=== PATIENT | female | born 1950 | race Hispanic/Latino ===

== ENCOUNTER 2017-08-23 12:58 | Inpatient (IN) | payer MEDICARE ==
--- NOTE | 2017-08-23 13:34 | ED PDOC ---
Arrival/HPI - General Chief Complaint: Shortness Of Breath Time Seen by Provider: 08/23/17 13:04 Historian: Patient - History of Present Illness Time/Duration: Other (several weeks) Symptom Onset: Gradual Symptom Course: Worsening Severity Level: Moderate Activities at Onset: Rest Associated Symptoms (Text): 08/23/17 13:31 Patient was seen in the office today by her PMD Dr. Maki and directed to the emergency department for a several week history of worsening shortness of breath. She also has urinary frequency and urgency for the last several weeks. She was treated with an unknown antibiotic and is no better. No chest pain. No cough congestion or URI. No abdominal pain nausea vomiting. Patient is currently living in a hotel. She is refusing a rectal temperature and a straight catheterization. She denies fever. Past Medical History - Cardiac Hx Cardiac Disorders: Yes Hx Congestive Heart Failure: Yes Hx Hypertension: Yes Hx Pacemaker: Yes - Pulmonary Hx Respiratory Disorders: Yes Hx Pulmonary Embolism: Yes Hx Sleep Apnea: Yes Other/Comment: IVC filter - Neurological Hx Neurological Disorder: No - HEENT Hx HEENT Disorder: No - Renal Hx Renal Disorder: No - Endocrine/Metabolic Hx Endocrine Disorders: Yes Hx Diabetes Mellitus Type 2: Yes Hx Hypothyroidism: Yes - Hematological/Oncological Hx Blood Disorders: No - Integumentary Hx Dermatological Disorder: No - Musculoskeletal/Rheumatological Hx Musculoskeletal Disorders: No Hx Arthritis: Yes - Gastrointestinal Hx Gastrointestinal Disorders: Yes Hx Constipation: Yes - Genitourinary/Gynecological Hx Genitourinary Disorders: Yes Hx Urinary Tract Infection: Yes - Psychiatric Hx Psychophysiologic Disorder: Yes Hx Panic Disorder: Yes Hx Substance Use: No - Surgical History Hx Tubal Ligation: Yes Other/Comment: IVC Filter - Anesthesia Hx Anesthesia: No Family/Social History - Physician Review Nursing Documentation Reviewed: Yes Family/Social History: Unknown Family HX Smoking Status: Former Smoker (quit smoking 37 years ago) Hx Alcohol Use: Yes Frequency of alcohol use: Socially Hx Substance Use: No Allergies/Home Meds Allergies/Adverse Reactions: Allergies melon Allergy (Verified 08/23/17 13:16) ANAPHYLAXIS Home Medications: Home Meds Medication Instructions Recorded Confirmed Ciprofloxacin [Cipro] 500 mg PO BID 08/23/17 08/23/17 Furosemide [Lasix] 40 mg PO DAILY 08/23/17 08/23/17 Levothyroxine Sodium [Synthroid] 0.3 mg PO DAILY 08/23/17 08/23/17 Nebivolol [Bystolic] 5 mg PO DAILY 08/23/17 08/23/17 Potassium Chloride [Klor-Con M10] 10 meq PO DAILY 08/23/17 08/23/17 SITagliptin [Januvia] 50 mg PO DAILY 08/23/17 08/23/17 Spironolactone [Aldactone] 25 mg PO MWF 08/23/17 08/23/17 Warfarin Sodium [Jantoven] 6 mg PO DAILY 08/23/17 08/23/17 hydrALAZINE [hydralazine 50 mg PO TID 08/23/17 08/23/17 Hydrochloride] Review of Systems - Physician Review All systems were reviewed & negative as marked: Yes - Review of Systems Constitutional: Fatigue. absent: Fevers Respiratory: SOB. absent: Cough, Sputum, Wheezing Cardiovascular: absent: Chest Pain, Palpitations, Syncope Gastrointestinal: absent: Abdominal Pain, Diarrhea, Nausea, Vomiting Genitourinary Female: Dysuria, Frequency. absent: Hematuria Neurological: absent: Headache, Dizziness Physical Exam Vital Signs Temp Pulse Resp BP Pulse Ox 08/23/17 14:46 97.8 F 63 18 131/84 100 08/23/17 13:50 16 100 08/23/17 13:06 97.8 F 71 24 129/74 100 Temperature: Afebrile Blood Pressure: Normal Pulse: Regular Respiratory Rate: Normal Appearance: Positive for: Well-Appearing, Non-Toxic, Uncomfortable, Other ( morbidly obese) Pain Distress: None Mental Status: Positive for: Alert and Oriented X 3 - Systems Exam Head: Present: Atraumatic, Normocephalic Pupils: Present: PERRL Extroacular Muscles: Present: EOMI Conjunctiva: Present: Normal Mouth: Present: Moist Mucous Membranes Pharnyx: No: ERYTHEMA, EXUDATE, TONSILS ENLARGED Neck: Present: Normal Range of Motion Respiratory/Chest: Present: Clear to Auscultation, Good Air Exchange, Decreased Breath Sounds, Tachypneic. No: Respiratory Distress, Accessory Muscle Use, Wheezes, Rales, Retracting, Rhonchi, Tender to Palpation Cardiovascular: Present: Regular Rate and Rhythm, Normal S1, S2. No: Murmurs Abdomen: Present: Tenderness (mild suprapubic), Normal Bowel Sounds. No: Distention, Peritoneal Signs, Rebound, Guarding Back: Present: Normal Inspection Upper Extremity: Present: Normal Inspection. No: Cyanosis, Edema Lower Extremity: Present: Edema, Other (severe bilateral lower extremity chronic venous stasis changes and edema) Neurological: Present: GCS=15, CN II-XII Intact, Speech Normal, Motor Func Grossly Intact Skin: Present: Warm, Dry, Normal Color. No: Rashes Psychiatric: Present: Alert, Oriented x 3, Normal Insight, Normal Concentration Medical Decision Making ED Course and Treatment: 08/23/17 14:16 EKG shows normal sinus rhythm rate approximately 63 with a primary AV block and inverted T waves laterally with LVH and nonspecific ST and T-wave changes with no old available for comparison 08/23/17 15:19 Markedly elevated d-dimer and the patient's BUN and creatinine are also elevated. VQ scan has been ordered. 08/23/17 17:19 Patient needed IV sedation with Ativan in order to tolerate the VQ scan. VQ scan as read by the radiologist as low probability for pulmonary embolus. 08/23/17 17:[address] Maki who requests consults with cardiology and nephrology - Lab Interpretations Lab Results: 08/23/17 13:39 08/23/17 13:39 Lab Results 08/23/17 14:03: pO2 35, VBG pH 7.46 H, VBG pCO2 33.0 L, VBG HCO3 23.5, VBG Total CO2 24.5, VBG O2 Sat (Calc) 76.2 H, VBG Base Excess 0.3, VBG Potassium 3.8 , Glucose 93, Lactate 1.6, FiO2 21.0, Sodium 139.0, Chloride 108.0 H, Venous Blood Potassium 3.8 08/23/17 13:47: POC Glucose (mg/dL) 106 08/23/17 13:39: Sodium 141, Potassium 4.3, Chloride 106, Carbon Dioxide 21, Anion Gap 19, BUN 67 H, Creatinine 2.6 H, Est GFR ( Amer) 22, Est GFR ( Non-Af Amer) 18, Random Glucose 107, Calcium 10.3, Total Bilirubin 0.8, AST 25, ALT 21, Alkaline Phosphatase 48, Lactate Dehydrogenase 526, Total Creatine Kinase 36, Troponin I 0.02, NT-Pro-B Natriuret Pep 1940 H, Total Protein 8.4 H, Albumin 4.3, Globulin 4.1, Albumin/Globulin Ratio 1.0 L 08/23/17 13:39: Urine Color Yellow, Urine Appearance Turbid, Urine pH 6.0, Ur Specific [place] 1.015, Urine Protein 30 H, Urine Glucose (UA) Negative, Urine Ketones Negative, Urine Blood Trace-intact H, Urine Nitrate Negative, Urine Bilirubin Negative, Urine Urobilinogen 0.2, Ur Leukocyte Esterase Large H, Urine RBC 0 - 2, Urine WBC Tntc, Urine Bacteria Trace 08/23/17 13:39: PT 14.9 H, INR 1.36 H, APTT 25.8, D-Dimer, Quantitative 2250 H 08/23/17 13:39: WBC 5.5, RBC 4.32, Hgb 12.9, Hct 37.8, MCV 87.5, MCH 29.9, MCHC 34.1, RDW 15.3 H, Plt Count 131, MPV 9.1, Gran % 66.2, Lymph % (Auto) 22.7, [place] % (Auto) 9.1 H, Eos % (Auto) 1.6, Baso % (Auto) 0.4, Gran # 3.65, Lymph # 1.3, [place] # 0.5, Eos # 0.1, Baso # 0.02 - RAD Interpretation Radiology Orders: 08/23/17 13:29 CHEST PORTABLE [RAD] Stat 08/23/17 15:17 LUNG PERF & VENT SCAN [NM] Stat X-ray chest 1 view as read by the radiologist shows mild cardiomegaly with no infiltrate and no effusion [employer] Gang Worker: Radiologist - Medication Orders Current Medication Orders: Discontinued Medications Ceftriaxone Sodium (Rocephin 1 Gram Ivpb (D5w)) 1 gm in 100 mls @ 200 mls/hr IVPB STAT STA PRN Reason: Protocol Stop: 08/23/17 14:45 Last Admin: 08/23/17 14:25 Dose: 200 mls/hr eMAR Start Stop Document 08/23/17 14:25 SE (Rec: 08/23/17 14:25 SE [id number]) Intravenous Solution Start Date 08/23/17 Start Time 14:25 Lorazepam (Ativan) 2 mg IVP ONCE ONE Stop: 08/23/17 15:30 Last Admin: 08/23/17 15:36 Dose: 2 mg IVP Administration Document 08/23/17 15:36 SE (Rec: 08/23/17 15:36 [facility] [id number] Charges for Administration # of IVP Administrations 1 Disposition/Present on Arrival - Present on Arrival Any Indicators Present on Arrival: No History of DVT/PE: Yes History of Uncontrolled Diabetes: No Urinary Catheter: No History of Decub. Ulcer: No History Surgical Site Infection Following: None - Disposition Have Diagnosis and Disposition been Completed?: Yes Diagnosis: Urinary tract infection, Renal failure, Dyspnea, Elevated brain natriuretic peptide (BNP) level Disposition: HOSPITALIZED Disposition Time: 17:27 Patient Plan: Admission Condition: FAIR Referrals: Matt Maki, [Primary Care Provider] - Follow up with primary Forms: [employer] (Micronesian)
[2017-08-23 13:59] LABS: BASO # 0.02 K/mm3 (0.0-2.0); BASO % 0.4 % (0.0-3.0); EOS # 0.1 (0.0-0.7); EOS % 1.6 % (1.5-5.0); GRAN # 3.65 (1.4-6.5); GRAN % 66.2 % (50.0-68.0); HEMATOCRIT 37.8 % (36.0-48.0); LYMPH # 1.3 (1.2-3.4); LYMPH % 22.7 % (22.0-35.0); MEAN CELL VOLUME 87.5 fl (80.0-105.0); MEAN CORPUSCULAR HEMOGLOBIN 29.9 pg (25.0-35.0); MEAN CORPUSCULAR HGB CONC 34.1 g/dl (31.0-37.0); MEAN PLATELET VOLUME 9.1 fl (7.0-11.0); MONO # 0.5 (0.1-0.6); MONO % 9.1 % (1.0-6.0); RED CELL DISTRIBUTION WIDTH 15.3 % (11.5-14.5); WHITE BLOOD COUNT 5.5 10^3/ul (4.5-11.0)
[2017-08-23 14:06] LABS: URINE BILIRUBIN NEGATIVE (NEGATIVE); URINE BLOOD TRACE-INTACT (NEGATIVE); URINE GLUCOSE (UA) NEGATIVE (NEGATIVE); URINE KETONE NEGATIVE (NEGATIVE); URINE LEUKOCYTE ESTERASE LARGE Leu/uL (NEGATIVE); URINE PROTEIN 30 mg/dL (<30 mg/dL); URINE UROBILINOGEN 0.2 E.U./dL (<1 E.U./dL)
[2017-08-23 14:07] LABS: URINE APPEARANCE TURBID (CLEAR); URINE COLOR YELLOW (YELLOW)
[2017-08-23 14:12] LABS: URINE BACTERIA TRACE (NEG); URINE RBC 0 - 2 /hpf (0-2); URINE WBC TNTC /hpf (0-6)
[2017-08-23] MEDS ORDERED: cefTRIAXone 1 gm 1 GM/100 ML BAG IVPB STA (14:16)
[2017-08-23 14:17] LABS: VENOUS BLOOD GAS BASE EXCESS 0.3 mmol/L (0.0-2.0); VENOUS BLOOD PH 7.46 (7.32-7.43)
[2017-08-23 14:20] LABS: INR 1.36 (0.93-1.08); PARTIAL THROMBOPLASTIN TIME 25.8 Seconds (25.1-36.5)
--- NOTE | 2017-08-23 14:21 | RAD ---
HISTORY: sob COMPARISON: No prior. FINDINGS: LUNGS: No active pulmonary disease. PLEURA: No significant pleural effusion identified, no pneumothorax apparent. CARDIOVASCULAR: Mild cardiomegaly OSSEOUS STRUCTURES: No significant abnormalities. VISUALIZED UPPER ABDOMEN: Normal. OTHER FINDINGS: Dual lead pacemaker IMPRESSION: No active disease.
[2017-08-23 14:24] LABS: TROPONIN I 0.02 ng/mL
[2017-08-23 15:16] LABS: BILIRUBIN,TOTAL 0.8 mg/dL (0.2-1.3); CALCIUM 10.3 mg/dL (8.4-10.5); POTASSIUM 4.3 mmol/L (3.6-5.0); TOTAL PROTEIN 8.4 g/dL (5.8-8.3)
--- NOTE | 2017-08-23 17:05 | NM ---
COMPARISON: Portable chest same day TECHNIQUE: 33.0 mCi technetium 99-m DTPA aerosol. 3.2 mCI technetium 99-m MAA administered intravenously. FINDINGS: VENTILATION COMPONENT: Normal. PERFUSION COMPONENT: Normal. IMPRESSION: Lowprobability ventilation perfusion scan for pulmonary embolism.
[2017-08-23] MEDS ORDERED: Sodium Chloride 0.45% 1,000 ML IV SCH (19:15)
--- NOTE | 2017-08-24 00:12 | HP ---
HISTORY OF PRESENT ILLNESS: I saw Alea today earlier in the afternoon with her son, she came to my office and she was very short of breath, was not feeling well even in a wheelchair, not doing anything. I sent to the emergency room and I found that she was having increasing urinary frequency and pus coming from the urine. She was on Cipro for UTI and apparently it did not work. She is very uncomfortable and she also has some edema of the lower extremities. PAST MEDICAL HISTORY: History of CHF, pacemaker, hypertension, pulmonary embolism in the past, sleep apnea. She has an IVC filter. She has diabetes, hypothyroidism, arthritis, constipation, history of urinary tract infections, panic disorder, tubal ligation, IVC filter. FAMILY HISTORY: There is hypertension in her family. SOCIAL HISTORY: She is a former smoker, quit 37 years ago. Social alcohol. No substance abuse. ALLERGIES: SHE HAS ALLERGIES TO MELON. MEDICATIONS: She takes Cipro, Lasix, Synthroid, Bystolic, potassium, Januvia, Aldactone, Jantoven, and hydralazine. REVIEW OF SYSTEMS: No acute vision or hearing changes. No sore throat. She is short of breath. No coughing. No wheezing. No chest pain or palpitation. No abdominal pain, nausea, vomiting, constipation, or diarrhea. She has increase in urination and problems with urination, little bit of burning. No headache, dizziness, or sweating. No apparent skin issues. PHYSICAL EXAMINATION: GENERAL: She is toxic looking to me, lethargic in breathing at a very fast rate. Alert and oriented x3. VITAL SIGNS: She has a 97.8 temperature, 63 pulse, 18 respiratory rate, 131/84 blood pressure, 100% O2 saturation on room air. HEENT: Head is normocephalic and atraumatic. Extraocular muscles are intact. Throat is dry. NECK: Supple. HEART: Regular rate. Normal S1 and S2. LUNGS: Decreased breath sounds bilaterally. She is breathing at a 24 breaths per minute. ABDOMEN: Soft, morbidly obese, nontender. There is mild suprapubic tenderness. No guarding. No rebound. No CVA tenderness. EXTREMITIES: +4 pitting edema bilaterally. NEUROLOGIC: GCS is 15. Cranial nerves II through XII grossly intact. Speech is normal. She is alert and oriented x3, very weak, lethargic, breathing too fast. LABORATORY DATA: She had multiple tests done. The lung scan with low probability. The chest x-ray with no acute disease. She has a 5.5 white count, 12.9 hemoglobin, 37.8 hematocrit with 131 platelets. 1.36 INR. 2250 D-dimer. She has a 7.46 pH and pO2 is 76. Lactate was 1.6. 141 sodium, potassium 4.3, BUN 67, creatinine 2.6 elevated, GFR is 18, sugar is 107, calcium is 10.3. Total bilirubin is 0.8, AST is 25, ALT is 21, alk phos is 48. Troponin I is 0.02. BNP is high at 1140. Total protein is 8.4. Urine, large leukocytes too numerous count white cells, and trace bacteria. ASSESSMENT AND PLAN: She is having pyuria, she is having renal failure. She is having congestive heart failure. She is having shortness of breath. She is morbidly obese with venous stasis and edema. She has got IV Rocephin and consults with Pulmonary and Renal. We will check her labs tomorrow. Physical therapy. She might need subacute rehab. Continue aggressive treatment and care. Matt Maki DO
--- NOTE | 2017-08-24 00:52 | CARD ---
APPROVED REPORT EKG Measurement Heart [id number] <Conclusion> Sinus rhythm with 1st degree AV block Minimal voltage criteria for LVH, may be normal variant ST & T wave abnormality, consider anterolateral ischemia Abnormal ECG
[2017-08-24 06:28] LABS: INR 1.46 (0.93-1.08)
[2017-08-24 06:55] LABS: ALB/GLOB RATIO 0.9 (1.1-1.8); BILIRUBIN,TOTAL 0.7 mg/dL (0.2-1.3); CALCIUM 9.2 mg/dL (8.4-10.5); POTASSIUM 3.9 mmol/L (3.6-5.0); TOTAL PROTEIN 6.9 g/dL (5.8-8.3)
[2017-08-24 06:57] LABS: HEMATOCRIT 33.3 % (36.0-48.0); MEAN CELL VOLUME 88.8 fl (80.0-105.0); MEAN CORPUSCULAR HEMOGLOBIN 28.8 pg (25.0-35.0); MEAN CORPUSCULAR HGB CONC 32.4 g/dl (31.0-37.0); RED CELL DISTRIBUTION WIDTH 15.6 % (11.5-14.5); WHITE BLOOD COUNT 4.2 10^3/ul (4.5-11.0)
[2017-08-24] MEDS: Insulin Reg-MEDIUM-Coverage SC SCH ×4 (08:36→21:44)
[2017-08-24] MEDS: Levothyroxine 150 MCG TAB PO SCH (09:59)
[2017-08-24] MEDS: Potassium Chloride 10 mEq ER Tab PO SCH (09:59)
[2017-08-24] MEDS: cefTRIAXone 1 gm 1 GM/100 ML BAG IVPB SCH (10:00)
[2017-08-24] MEDS ORDERED: LEVOTHYROXINE SODIUM 0.3 MG PO SCH (10:00)
[2017-08-24] MEDS: Non Formulary Medication (Nebivolol [Bystolic] 5 MG) PO SCH (10:45)
--- NOTE | 2017-08-24 12:23 | PN ---
DATE: SUBJECTIVE: I saw Alea this morning. She is doing so much better than yesterday. She is not short of breath. She is talking much better. She is breathing much better. Looks like she diuresed very well as she is thinner overall. She is in no pain, no chest pain, no shortness of breath, so I am hoping if we continue this by tomorrow, I might be able to get her up as she needs physical therapy. PHYSICAL EXAMINATION: GENERAL: She is very alert, not lethargic. She is talking. VITAL SIGNS: 97.8 temp, 72 pulse, 134/66 blood pressure, 17 respiratory rate and 99% O2 saturation on room air. HEENT: Head is atraumatic and normocephalic. Throat is moist. NECK: Supple. HEART: Regular rate. LUNGS: Decreased breath sounds, but clear, no wheeze, no rhonchi and no rales this morning. ABDOMEN: Soft, obese, and nontender. EXTREMITIES: Much less edema, it is +2 to +3/4 bilaterally, yesterday it was +4, so she is definitely diuresed well. LABORATORY DATA: She has a 4.2 white count, 10.8 hemoglobin, 32.3 hematocrit with a 116 platelets. Her INR is up to 1.46. She has a 139 sodium, potassium 3.9, BUN 62 better, creatinine 2.6 the same, GFR is 18 the same, sugar is 97, calcium 9.2, total bilirubin 0.7, AST is 20, ALT is 21, alkaline phosphatase 42, and total protein 6.9. Her urine was bad, large leukocytes, too numerous to count white count. ASSESSMENT AND PLAN: I am waiting for Renal and Cardio to look at her. I think she is doing much better than when she came in. We will continue with the antibiotics. Continue with Lasix, diurese 40 daily and a little bit of fluid at 30 mL an hour. Checking her INR level. I want her out of bed to chair, I want physical therapy. I do not know if she is going to need to have subacute rehab or Transitional Care Unit before she goes home. We will see what they recommend, and she is here for congestive heart failure, pyuria, obesity, venous stasis, and she was short of breath. Matt Maki DO [place]
--- NOTE | 2017-08-24 14:45 | US ---
PROCEDURE: Ultrasound of the Kidneys HISTORY: MAE COMPARISON: None available. TECHNIQUE: Sonogram of the kidneys. FINDINGS: RIGHT KIDNEY: Measures: 10.1 x 3.9 x 3.9 cm. Normal in size, contour and echogenicity. No, solid mass lesion or hydronephrosis visualized. Multiple shadowing renal calculi. Mid to lower pole right renal cortical cyst 6 x 5 x 6 mm LEFT KIDNEY: Measures: 10.0 x 4.5 x 4.7 cm. Normal in size, contour and echogenicity. No solid mass lesion or hydronephrosis visualized. Multiple shadowing renal calculi OTHER FINDINGS: None. IMPRESSION: Bilateral renal calculi some appear greater than 5 mm in size in each kidney. No hydronephrosis. Right renal cortical cyst mid to lower pole - measuring up to 6 mm
--- NOTE | 2017-08-24 16:02 | CP.PCM.CON ---
History of Present Illness - History of Present Illness History of Present Illness: Initial Nephrology Consultation: Assessment: Stable UTI Acute Kidney Injury (N17.9) versus progression of underlying CKD Diabetic chronic Kidney Disease (E11.22) Hypertensive Chronic Kidney Disease (I12.9) Chronic Kidney Disease (N18.4) Stage 4 with ?mg proteinuria (R80.9) likely due to Dm/HTN Anemia (D64.9), HTN (I12.9) CHF, hx of PPM, DVT and PE s/p IVC Filter, GAIL, Morbid obesity, chronic lymphedema Plan No acute need for renal replacement therapy at this time. Hypertension control with meds as ordered. Patient not on ACEI/ARB, will defer due to advanced renal insuff at this time Monitor Input/Output, daily weights and renal function with basic metabolic panel d/c IVF can continue with lasix. Check urine analysis, spot protein/creatinine and albumin/creatinine ratio, renal sonogram. . Check for 25-OH vitamin D, iPTH, phosphorus level, TSAT/Ferritin Check serum protein electrophoresis with immunofixation, free light chain assay Dose meds/antibiotics for reduced GFR. Avoid fleets enema/magnesium based laxatives. Avoid nephrotoxins/NSAIDs/ iodinated contrast (unless needed emergently) Glycemic control Further work up/management as per primary team Thanks for allowing me to participate in care of your patient. Will follow patient with you. Please call if any Qs Dr Antonio Singh Office: [phone] Chief Complaint; UTI reason for consult: renal insuff HPI: Pt is a 67 F with hx of diabetes Mellitus (35 years) without known retinopathy, hypertension (30 years), CHF, hx of PPM, DVT and PE s/p IVC Filter , GAIL, Morbid obesity, chronic lymphedema presented with complaints of UTI symptoms and SOB and being managed for it also noticed elevated creatinine hence renal consulted. pt says she is aware of kidney problem for few years was told its around 50%. used to be in [facility] , now moved here [place] [facility] Denies chest pain, palpitation, improved shortness of breath, reports chronic leg swelling Denies blood or bubbles in urine but c/o UTI symptoms Denies OTC/herbal meds or NSAIDs No recent iodinated contrast exposure. No obvious episodes of low BP. ROS: Constitutional Symptoms: Denies fever. No chills. No Recent Weight Changes Eyes: denies change in vision, denies watery eyes, denies double vision Ears/Nose/Mouth/Throat: Denies Abnormal Taste. No Bad breath no Bad Taste. Cardiovascular: No chest pain. No palpitations. Pulmonary: c/o shortness of breath no cough. Gastrointestinal: denies abdominal pain No nausea. No vomiting. Denies change in bowel habits. Denies Bleeding Genitourinary: No Change in force of strain when urinating. c/o increase in urinary frequency. No pain while urinating. Denies blood in urine. c/o painful urination Neurological: Denies headaches. No dizziness. Denies loss of balance. Denies weakness, denies tingling/numbness Dermatological: No Rash or Bruising or ulcers. Psychiatric: c/o Anxiety. No depression. Denies hallucinations. Rheumatological: No joint pain. Denies Joint swelling Endocrine: Denies tiredness/Fatigue denies Heat/Cold Intolerance. All other negative Physical Examination: General Appearance: Comfortable, in no acute respiratory distress, co-operative . obese Vitals reviewed and noted as below Head; Atraumatic, normocephalic ENT: no ulcers no thrush. Tongue is midline. Oropharynx: no rash or ulcers. EYES: Pupils are equal, round and reactive to light accommodation. Eye muscles and extraocular movement intact. Sclera is anicteric. Neck; supple no lymphadenopathy, no thyromegaly or bruit Lungs: Normal respiratory rate/effort. Breath sounds bilateral equal and clear Heart: Normal rate. s1s2 normal. No rub or gallop. has PPM Extremities: chronic appearing leg edema. has chronic venous stasis changes in legs Neurological: Patient is alert, awake and oriented to person, place and time. No focal deficit. Strength bilateral appropriate and equal Skin: Warm and dry. Normal turgor. No rash. Palpitation: Normal elasticity for age Abdomen: Abdomen is soft. Bowel sounds +. There is no abdominal tenderness, no guarding/rigidity no organomegaly Psych: normal insight and normal affect/mood MSK: no joint tenderness or swelling. Digits and nails normal, no deformity : kidney or bladder not palpable Labs/imaging reviewed. Past medical history, past surgical history, family history, social history, allergy reviewed and noted as below Family hx: no hx of CKD. Rest non-contributory renal sono: b/l calculi and rt renal cyst Past Patient History - Past Social History Smoking Status: Former Smoker - CARDIAC Hx Cardiac Disorders: Yes Hx Congestive Heart Failure: Yes Hx Hypercholesterolemia: Yes Hx Hypertension: Yes - PULMONARY Hx Respiratory Disorders: Yes Hx Sleep Apnea: Yes Other/Comment: IVC filter - NEUROLOGICAL Hx Neurological Disorder: No - HEENT Hx HEENT Problems: No - RENAL Hx Chronic Kidney Disease: No - ENDOCRINE/METABOLIC Hx Diabetes Mellitus Type 2: Yes Hx Hypothyroidism: Yes - HEMATOLOGICAL/ONCOLOGICAL Hx Blood Disorders: No - INTEGUMENTARY Hx Dermatological Problems: No - MUSCULOSKELETAL/RHEUMATOLOGICAL Hx Falls: No - GASTROINTESTINAL Hx Gastrointestinal Disorders: Yes - GENITOURINARY/GYNECOLOGICAL Hx Genitourinary Disorders: Yes Hx Urinary Tract Infection: Yes - PSYCHIATRIC Hx Psychophysiologic Disorder: Yes Hx Panic Symptoms: Yes - SURGICAL HISTORY Other/Comment: IVC Filter - ANESTHESIA Hx Anesthesia: No Meds Allergies/Adverse Reactions: Allergies Allergy/AdvReac Type Severity Reaction Status Date / Time melon Allergy ANAPHYLAXIS Verified 08/23/17 13:16 - Medications Medications: Current Medications Acetaminophen (Tylenol 325mg Tab) 650 mg PO Q4H PRN PRN Reason: Pain, Mild (1-3) Last Admin: 08/24/17 14:15 Dose: 650 mg Furosemide (Lasix) 40 mg IVP DAILY [facility] Last Admin: 08/24/17 10:00 Dose: 40 mg Ceftriaxone Sodium (Rocephin 1 Gram Ivpb (D5w)) 1 gm in 100 mls @ 100 mls/hr IVPB DAILY [facility]KO PRN Reason: Protocol Last Admin: 08/24/17 10:00 Dose: 100 mls/hr Insulin Human Regular (Humulin R Med) 0 units SC ACHS FRANKO PRN Reason: Protocol Last Admin: 08/24/17 12:11 Dose: Not Given Levothyroxine Sodium (Synthroid) 300 mcg PO ACB [facility] Last Admin: 08/24/17 09:59 Dose: 300 mcg Non-Formulary Medication (Nebivolol [Bystolic]) 5 mg PO DAILY [facility] Last Admin: 08/24/17 10:45 Dose: Not Given Potassium Chloride (Klor-Con 10) 10 meq PO BRK [facility] Last Admin: 08/24/17 09:59 Dose: 10 meq Sitagliptin Phosphate (Januvia) 25 mg PO DAILY [facility] Last Admin: 08/24/17 09:59 Dose: 25 mg Warfarin Sodium (Coumadin) 6 mg PO 1800 [facility]KO Results - Vital Signs Recent Vital Signs: Last Vital Signs Temp 98.0 F 08/24/17 06:00 Pulse 76 08/24/17 06:00 Resp 18 08/24/17 06:00 BP 132/69 08/24/17 10:00 Pulse Ox 93 L 08/24/17 06:00 - Labs Result Diagrams: 08/24/17 05:40 08/24/17 05:40 Labs: Laboratory Results - last 24 hr 08/23/17 08/24/17 08/24/17 21:08 05:40 05:40 WBC 4.2 L D RBC 3.75 Hgb 10.8 L D Hct 33.3 L MCV 88.8 MCH 28.8 MCHC 32.4 RDW 15.6 H Plt Count 116 L MPV 9.0 PT INR Sodium 139 Potassium 3.9 Chloride 108 H Carbon Dioxide 24 Anion Gap 12 BUN 62 H Creatinine 2.6 H Est GFR ( Amer) 22 Est GFR (Non-Af Amer) 18 POC Glucose (mg/dL) 106 Random Glucose 97 Calcium 9.2 Iron TIBC % Saturation Total Bilirubin 0.7 AST 20 ALT 21 Alkaline Phosphatase 42 Total Protein 6.9 Albumin 3.3 Globulin 3.6 Albumin/Globulin Ratio 0.9 L Ur Random Creatinine Ur Random Sodium 08/24/17 08/24/17 08/24/17 05:40 05:40 07:30 WBC RBC Hgb Hct MCV MCH MCHC RDW Plt Count MPV PT 16.2 H INR 1.46 H Sodium Potassium Chloride Carbon Dioxide Anion Gap BUN Creatinine Est GFR ( Amer) Est GFR (Non-Af Amer) POC Glucose (mg/dL) 85 Random Glucose Calcium Iron 58 TIBC 210 L % Saturation 28 Total Bilirubin AST ALT Alkaline Phosphatase Total Protein Albumin Globulin Albumin/Globulin Ratio Ur Random Creatinine Ur Random Sodium 08/24/17 08/24/17 08/24/17 11:23 14:20 14:20 WBC RBC Hgb Hct MCV MCH MCHC RDW Plt Count MPV PT INR Sodium Potassium Chloride Carbon Dioxide Anion Gap BUN Creatinine Est GFR ( Amer) Est GFR (Non-Af Amer) POC Glucose (mg/dL) 122 H Random Glucose Calcium Iron TIBC % Saturation Total Bilirubin AST ALT Alkaline Phosphatase Total Protein Albumin Globulin Albumin/Globulin Ratio Ur Random Creatinine 18 Ur Random Sodium 117
[2017-08-24 17:58] LABS: VITAMIN D 25 OH TOTAL 53.3 NG/ML (30.0-100.0)
[2017-08-25 06:18] LABS: CREATININE, RANDOM URINE 21 mg/dL (20-320)
[2017-08-25 06:42] LABS: HEMATOCRIT 33.1 % (36.0-48.0); MEAN CELL VOLUME 87.6 fl (80.0-105.0); MEAN CORPUSCULAR HEMOGLOBIN 28.8 pg (25.0-35.0); MEAN CORPUSCULAR HGB CONC 32.9 g/dl (31.0-37.0); MEAN PLATELET VOLUME 9.1 fl (7.0-11.0); RED CELL DISTRIBUTION WIDTH 15.4 % (11.5-14.5); WHITE BLOOD COUNT 4.1 10^3/ul (4.5-11.0)
[2017-08-25 06:48] LABS: INR 1.28 (0.93-1.08)
[2017-08-25 07:17] LABS: BILIRUBIN,TOTAL 0.5 mg/dL (0.2-1.3); TOTAL PROTEIN 6.9 g/dL (5.8-8.3)
[2017-08-25 08:16] LABS: POTASSIUM 4.1 mmol/L (3.6-5.0)
--- NOTE | 2017-08-25 08:24 | CON ---
CARDIOLOGY CONSULTATION DATE: 08/24/2017 HISTORY OF PRESENT ILLNESS: The patient is a 67-year-old woman who presents with dyspnea and marked dysuria. PAST MEDICAL HISTORY: Includes a history of pulmonary embolism, treated with warfarin years ago. She has also had a pacemaker placed several years ago, what she told was for bradycardia. No other details are available. The patient has no previous cardiac history. No previous history of myocardial infarction. Her cardiac risk factors includes hypertension and diabetes mellitus. SOCIAL HISTORY: She denies smoking. REVIEW OF SYSTEMS: No chest pain or shortness of breath at this time. Plus/minus edema. She is complaining of marked dysuria. PHYSICAL EXAMINATION VITAL SIGNS: Blood pressure is 132/69, heart rate in the 70s. NECK: Negative JVD. LUNGS: Without rales. HEART: Reveal S1, S2. EXTREMITIES: Without edema. LABORATORY DATA: Reveals normal sinus rhythm with diffuse ST-T changes. Troponin is negative x1. INR is 1.46. Chemistries; BUN and creatinine 62/2.6 with a glucose of 122. The hemoglobin is 10.8. IMPRESSION: 1. Dyspnea, which is now resolved. 2. No evidence for pulmonary embolism, although there is a history of it. 3. History of pacemaker for questionable reasons. 4. Anemia. 5. Hypertension. 6. Diabetes mellitus. Given these findings, since the pulmonary embolism is ruled out for her dyspnea, we will obtain an echocardiogram to evaluate her LV function. Tylenol been ordered for her dysuria.. Pyridium cannot be used because of her renal insufficiency. Mane Key MD
[2017-08-25] MEDS: Insulin Reg-MEDIUM-Coverage SC SCH ×4 (08:25→21:50)
[2017-08-25] MEDS: Levothyroxine 150 MCG TAB PO SCH (08:55)
[2017-08-25] MEDS: Potassium Chloride 10 mEq ER Tab PO SCH (08:55)
[2017-08-25] MEDS: Non Formulary Medication (Nebivolol [Bystolic] 5 MG) PO SCH (10:36)
[2017-08-25] MEDS: cefTRIAXone 1 gm 1 GM/100 ML BAG IVPB SCH (10:39)
[2017-08-25] MEDS: Psyllium Packet PO SCH ×2 (10:39→17:26)
--- NOTE | 2017-08-25 11:51 | PN ---
SUBJECTIVE: I saw Alea resting comfortably in bed. She is breathing better. Legs are less swollen. She is doing better overall. She needs to go to subacute rehab. I am going to try and get her to [facility] or [facility]. She is on Coumadin, insulin coverage,, Januvia, potassium replacement, Lasix 40 IV, Bystolic, Rocephin, Synthroid, Tylenol, and Xanax. PHYSICAL EXAMINATION: VITAL SIGNS: 97.8 temp, 70 pulse, 136/67 blood pressure, 20 respiratory rate, 96% O2 sat on room air. HEENT: Head is atraumatic and normocephalic. HEART: Regular rate. LUNGS: Decreased breath sounds. Clear to auscultation. ABDOMEN: Soft, nontender. Positive bowel sounds. EXTREMITIES: +1 to 2 pitting edema. LABORATORY DATA: She has a white count that is 4.1, hemoglobin 10.9, hematocrit 33.1, platelets of 114. INR is down to 1.28, increased the Coumadin from 6 mg to 7. She has 139 sodium, potassium 4.1, BUN 62, creatinine 2.5, this this is got to be her baseline, GFR is 19, sugar is 92, calcium is 9, total bilirubin is 0.5, AST is 24, ALT is 21, alk phos is 41, total protein 6.9. She is being seen by Renal and Cardio. My plan is to go to subacute rehab tomorrow that will be her third overnight. ASSESSMENT: She is here for congestive heart failure, pyuria, renal failure, obesity, and venous stasis. She needs physical therapy before she goes home. Matt Maki DO MTDD
--- NOTE | 2017-08-25 12:15 | CP.PCM.PN ---
Subjective - Date & Time of Evaluation Date of Evaluation: 08/25/17 Time of Evaluation: 12:13 - Subjective Subjective: Follow up Nephrology Consultation: Assessment: Stable UTI Acute Kidney Injury (N17.9) versus progression of underlying CKD Diabetic chronic Kidney Disease (E11.22) Hypertensive Chronic Kidney Disease (I12.9) Chronic Kidney Disease (N18.4) Stage 4 with 1.1 gm proteinuria (R80.9) likely due to Dm/HTN Anemia (D64.9), HTN (I12.9) CHF, hx of PPM, DVT and PE s/p IVC Filter, GAIL, Morbid obesity, chronic lymphedema b/l non-obst calculi Plan No acute need for renal replacement therapy at this time. Hypertension control with meds as ordered. Patient not on ACEI/ARB, will defer due to advanced renal insuff at this time Monitor Input/Output, daily weights and renal function with basic metabolic panel continue with lasix. started Fe supplements and MVI Checking serum protein electrophoresis with immunofixation, free light chain assay, iPTH Dose meds/antibiotics for reduced GFR. Avoid fleets enema/magnesium based laxatives. Avoid nephrotoxins/NSAIDs/ iodinated contrast (unless needed emergently) Glycemic control Further work up/management as per primary team Thanks for allowing me to participate in care of your patient. Will follow patient with you. Please call if any Qs Dr Antonio Singh Office: [phone] Chief Complaint; UTI reason for consult: renal insuff HPI: Pt is a 67 F with hx of diabetes Mellitus (35 years) without known retinopathy, hypertension (30 years), CHF, hx of PPM, DVT and PE s/p IVC Filter , GAIL, Morbid obesity, chronic lymphedema presented with complaints of UTI symptoms and SOB and being managed for it also noticed elevated creatinine hence renal consulted. pt says she is aware of kidney problem for few years was told its around 50%. used to be in [facility] , now moved here [place] [facility] Denies chest pain, palpitation, improved shortness of breath, reports chronic leg swelling Physical Examination: General Appearance: Comfortable, in no acute respiratory distress, co-operative . obese Vitals reviewed and noted as below Head; Atraumatic, normocephalic ENT: no ulcers no thrush. Tongue is midline. Oropharynx: no rash or ulcers. EYES: Pupils are equal, round and reactive to light accommodation. Eye muscles and extraocular movement intact. Sclera is anicteric. Neck; supple no lymphadenopathy, no thyromegaly or bruit Lungs: Normal respiratory rate/effort. Breath sounds bilateral equal and clear Heart: Normal rate. s1s2 normal. No rub or gallop. has PPM Extremities: chronic appearing leg edema. has chronic venous stasis changes in legs Neurological: Patient is alert, awake and oriented to person, place and time. No focal deficit. Strength bilateral appropriate and equal Skin: Warm and dry. Normal turgor. No rash. Palpitation: Normal elasticity for age Abdomen: Abdomen is soft. Bowel sounds +. There is no abdominal tenderness, no guarding/rigidity no organomegaly Psych: normal insight and normal affect/mood MSK: no joint tenderness or swelling. Digits and nails normal, no deformity : kidney or bladder not palpable Labs/imaging reviewed. Past medical history, past surgical history, family history, social history, allergy reviewed and noted as below Family hx: no hx of CKD. Rest non-contributory renal sono: b/l calculi and rt renal cyst Objective - Vital Signs/Intake and Output Vital Signs (last 24 hours): Temp Pulse Resp BP Pulse Ox 97.8 F 70 20 136/67 96 08/25/17 06:00 08/25/17 06:00 08/25/17 06:00 08/25/17 10:38 08/25/17 06:00 Intake and Output: 08/25/17 08/25/17 06:59 18:59 Intake Total 1020 Balance 1020 - Medications Medications: Current Medications Acetaminophen (Tylenol 325mg Tab) 650 mg PO Q4H PRN PRN Reason: Pain, Mild (1-3) Last Admin: 08/25/17 02:28 Dose: 650 mg Alprazolam (Xanax) 0.25 mg PO BID PRN; Protocol PRN Reason: Anxiety Stop: 09/01/17 10:01 Last Admin: 08/25/17 08:55 Dose: 0.25 mg Ferrous Gluconate (Fergon) 324 mg PO TID [facility] Furosemide (Lasix) 40 mg IVP DAILY [facility] Last Admin: 08/25/17 10:38 Dose: 40 mg Ceftriaxone Sodium (Rocephin 1 Gram Ivpb (D5w)) 1 gm in 100 mls @ 100 mls/hr IVPB DAILY [facility] PRN Reason: Protocol Last Admin: 08/25/17 10:39 Dose: 100 mls/hr Insulin Human Regular (Humulin R Med) 0 units SC ACHS [facility] PRN Reason: Protocol Last Admin: 08/25/17 08:25 Dose: Not Given Levothyroxine Sodium (Synthroid) 300 mcg PO ACB [facility] Last Admin: 08/25/17 08:55 Dose: 300 mcg Multivitamins (Thera Tab) 1 tab PO 0800 [facility] Non-Formulary Medication (Nebivolol [Bystolic]) 5 mg PO DAILY [facility] Last Admin: 08/25/17 10:36 Dose: Not Given Potassium Chloride (Klor-Con 10) 10 meq PO BRK [facility] Last Admin: 08/25/17 08:55 Dose: 10 meq Psyllium Hydrophilic Mucilloid (Hydrocil Instant) 1 pkt PO BID [facility] Last Admin: 08/25/17 10:39 Dose: 1 pkt Sitagliptin Phosphate (Januvia) 25 mg PO DAILY [facility] Last Admin: 08/25/17 10:38 Dose: 25 mg Warfarin Sodium (Coumadin) 3 mg PO 1800 [facility] Warfarin Sodium (Coumadin) 4 mg PO 1800 [facility] - Labs Labs: 08/25/17 05:30 08/25/17 06:30 PT 14.2 SECONDS (9.4-12.5) H 08/25/17 05:30 INR 1.28 (0.93-1.08) H 08/25/17 05:30 APTT 25.8 Seconds (25.1-36.5) 08/23/17 13:39
--- NOTE | 2017-08-25 12:33 | PN ---
DATE: 08/25/2017 CARDIOLOGY FOLLOWUP SUBJECTIVE: The patient's dysuria is much improved. PHYSICAL EXAMINATION: VITAL SIGNS: Blood pressure 136/67, heart rate in the 70s. NECK: Negative JVD. LUNGS: Without rales. HEART: S1, S2. EXTREMITIES: Without edema. LABORATORY DATA: Hemoglobin is 10.9. Chemistries, BUN and creatinine 62 and 2.5. IMPRESSION: 1. Improvement of her dysuria. 2. Renal insufficiency. 3. No evidence for pulmonary embolism. 4. History of pacemaker placement. 5. Hypertension. 6. Diabetes mellitus. PLAN: Given these findings, the patient's echocardiogram is pending. From a cardiac perspective, the patient is doing well so far. Mane Key MD
--- NOTE | 2017-08-25 18:11 | CARD ---
APPROVED REPORT EXAM: Two-dimensional and M-mode echocardiogram with Doppler and color Doppler. INDICATION Dyspnea 2D DIMENSIONS Left Atrium (2D)4.0 (1.6-4.0cm)IVSd1.4 (0.7-1.1cm) Aortic Root (2D)3.0 (2.0-3.7cm)LVDd4.4 (3.9-5.9cm) PWd1.3 (0.7-1.1cm)LVDs2.7 (2.5-4.0cm) FS (%) 38.6 %LVEF (%)69.2 (>50%) M-Mode DIMENSIONS Aortic Cusp Exc.1.60 (1.5-2.0cm) Aortic Valve AoV Peak Dirgzpkl504.0cm/Thad Peak GR.9mmHg Mitral Valve MV E Ywxxiacf84.1cm/sMV A Gguazrby86.9cm/sE/A ratio0.8 TDI Lateral E' Peak V7.02cm/sMedial E' Peak V3.12cm/sE/Lateral E'9.6 E/Medial E'21.5 Pulmonary Valve PV Peak Canyapjo68.6cm/sPV Peak Grad.3mmHg Tricuspid Valve TR Peak Ieygdwwu409tg/sRAP [id number] Peak Gr.27mmHg [id number] LEFT VENTRICLE The left ventricle is normal size. There is mild concentric left ventricular hypertrophy. The left ventricular function is normal. The left ventricular ejection fraction is within the normal range. There is normal LV segmental wall motion. Transmitral Doppler flow pattern is Grade I-abnormal relaxation pattern. RIGHT VENTRICLE The right ventricle is mildly dilated, RV Systolic function is mildly reduced. Systolic function is mildly reduced. There is a pacemaker lead in the right ventricle. ATRIA The left atrium is mildly dilated. The right atrium size is normal. AORTIC VALVE The aortic valve is normal in structure. No aortic regurgitation is present. MITRAL VALVE The mitral valve is normal in structure. There is no mitral valve regurgitation noted. TRICUSPID VALVE There is trace tricuspid regurgitation. PULMONIC VALVE There is trace pulmonic valvular regurgitation. GREAT VESSELS The aortic root is normal in size. The IVC is normal in size and collapses >50% with inspiration. <Conclusion> The left ventricle is normal size. There is mild concentric left ventricular hypertrophy. The left ventricular function is normal. The left ventricular ejection fraction is within the normal range. There is normal LV segmental wall motion. Transmitral Doppler flow pattern is Grade I-abnormal relaxation pattern. The right ventricle is mildly dilated, RV Systolic function is mildly reduced.
[2017-08-26 05:57] LABS: TOTAL PROTEIN, SERUM 6.3 g/dL (6.1-8.1)
[2017-08-26 06:39] LABS: HEMATOCRIT 32.5 % (36.0-48.0); MEAN CELL VOLUME 87.4 fl (80.0-105.0); MEAN CORPUSCULAR HEMOGLOBIN 28.8 pg (25.0-35.0); MEAN CORPUSCULAR HGB CONC 32.9 g/dl (31.0-37.0); MEAN PLATELET VOLUME 9.1 fl (7.0-11.0); RED CELL DISTRIBUTION WIDTH 15.1 % (11.5-14.5); WHITE BLOOD COUNT 3.7 10^3/ul (4.5-11.0)
[2017-08-26 06:47] LABS: INR 1.2 (0.93-1.08)
[2017-08-26 07:00] LABS: ALB/GLOB RATIO 0.9 (1.1-1.8); BILIRUBIN,TOTAL 0.4 mg/dL (0.2-1.3); CALCIUM 9.2 mg/dL (8.4-10.5); PHOSPHOROUS 5.2 mg/dL (2.5-4.5); POTASSIUM 3.8 mmol/L (3.6-5.0); TOTAL PROTEIN 6.6 g/dL (5.8-8.3)
[2017-08-26] MEDS ORDERED: Multivitamin Therapeutic Tab PO SCH (08:00)
[2017-08-26] MEDS: Insulin Reg-MEDIUM-Coverage SC SCH ×4 (08:29→21:22)
[2017-08-26 08:41] VITALS: PULSE 69
[2017-08-26] MEDS: Potassium Chloride 10 mEq ER Tab PO SCH (09:01)
[2017-08-26] MEDS: Levothyroxine 150 MCG TAB PO SCH (09:01)
[2017-08-26] MEDS ORDERED: Cefpodoxime (Vantin) 200 mg Tab PO SCH (10:00)
[2017-08-26] MEDS ORDERED: Enoxaparin 30 mg Syringe SC SCH ×2 (10:00)
[2017-08-26] MEDS: Psyllium Packet PO SCH ×2 (11:01→17:47)
[2017-08-26] MEDS: Non Formulary Medication (Nebivolol [Bystolic] 5 MG) PO SCH (11:03)
--- NOTE | 2017-08-26 12:47 | CP.PCM.PN ---
Subjective - Date & Time of Evaluation Date of Evaluation: 08/26/17 Time of Evaluation: 12:45 - Subjective Subjective: Follow up Nephrology Consultation: Assessment: Stable UTI Acute Kidney Injury (N17.9) improving Diabetic chronic Kidney Disease (E11.22) Hypertensive Chronic Kidney Disease (I12.9) Chronic Kidney Disease (N18.4) Stage 4 with 1.1 gm proteinuria (R80.9) likely due to Dm/HTN Anemia (D64.9), HTN (I12.9) CHF, hx of PPM, DVT and PE s/p IVC Filter, GAIL, Morbid obesity, chronic lymphedema b/l non-obst calculi Plan No acute need for renal replacement therapy at this time. Hypertension control with meds as ordered. Patient not on ACEI/ARB, will defer due to advanced renal insuff at this time Monitor Input/Output, daily weights and renal function with basic metabolic panel continue with lasix. started Fe supplements and MVI Checking serum protein electrophoresis with immunofixation, free light chain assay, iPTH Dose meds/antibiotics for reduced GFR. Avoid fleets enema/magnesium based laxatives. Avoid nephrotoxins/NSAIDs/ iodinated contrast (unless needed emergently) Glycemic control Further work up/management as per primary team Thanks for allowing me to participate in care of your patient. Please call if any Qs. pt planned for d/c to [facility] today. stable from renal perspective. suggested to f/up with me in office after d/c. d/w primary team and d/w son bedside. Dr Antonio Singh Office: [phone] Chief Complaint; UTI reason for consult: renal insuff HPI: Pt is a 67 F with hx of diabetes Mellitus (35 years) without known retinopathy, hypertension (30 years), CHF, hx of PPM, DVT and PE s/p IVC Filter , GAIL, Morbid obesity, chronic lymphedema presented with complaints of UTI symptoms and SOB and being managed for it also noticed elevated creatinine hence renal consulted. pt says she is aware of kidney problem for few years was told its around 50%. used to be in [facility] , now moved here [place] Denies chest pain, palpitation, improved shortness of breath, reports chronic leg swelling. urinary symptoms better Physical Examination: General Appearance: Comfortable, in no acute respiratory distress, co-operative . obese Vitals reviewed and noted as below Head; Atraumatic, normocephalic ENT: no ulcers no thrush. Tongue is midline. Oropharynx: no rash or ulcers. EYES: Pupils are equal, round and reactive to light accommodation. Eye muscles and extraocular movement intact. Sclera is anicteric. Neck; supple no lymphadenopathy, no thyromegaly or bruit Lungs: Normal respiratory rate/effort. Breath sounds bilateral equal and clear Heart: Normal rate. s1s2 normal. No rub or gallop. has PPM Extremities: chronic appearing leg edema. has chronic venous stasis changes in legs Neurological: Patient is alert, awake and oriented to person, place and time. No focal deficit. Strength bilateral appropriate and equal Skin: Warm and dry. Normal turgor. No rash. Palpitation: Normal elasticity for age Abdomen: Abdomen is soft. Bowel sounds +. There is no abdominal tenderness, no guarding/rigidity no organomegaly Psych: normal insight and normal affect/mood MSK: no joint tenderness or swelling. Digits and nails normal, no deformity : kidney or bladder not palpable Labs/imaging reviewed. Past medical history, past surgical history, family history, social history, allergy reviewed and noted as below Family hx: no hx of CKD. Rest non-contributory renal sono: b/l calculi and rt renal cyst Objective - Vital Signs/Intake and Output Vital Signs (last 24 hours): Temp Pulse Resp BP Pulse Ox 97.7 F 69 20 141/69 96 08/26/17 06:00 08/26/17 06:00 08/26/17 06:00 08/26/17 11:00 08/26/17 06:00 Intake and Output: 08/26/17 08/26/17 06:59 18:59 Intake Total 840 Output Total 3 Balance 837 - Medications Medications: Current Medications Acetaminophen (Tylenol 325mg Tab) 650 mg PO Q4H PRN PRN Reason: Pain, Mild (1-3) Last Admin: 08/25/17 16:17 Dose: 650 mg Alprazolam (Xanax) 0.25 mg PO BID PRN; Protocol PRN Reason: Anxiety Stop: 09/01/17 10:01 Last Admin: 08/25/17 08:55 Dose: 0.25 mg Cefpodoxime Proxetil (Vantin) 200 mg PO DAILY [facility] Last Admin: 08/26/17 11:02 Dose: 200 mg Enoxaparin Sodium (Lovenox) 30 mg SC DAILY [facility] PRN Reason: Protocol Last Admin: 08/26/17 11:03 Dose: 30 mg Ferrous Gluconate (Fergon) 324 mg PO TID [facility] Last Admin: 08/26/17 11:02 Dose: 324 mg Furosemide (Lasix) 40 mg IVP DAILY [facility] Last Admin: 08/26/17 11:00 Dose: 40 mg Insulin Human Regular (Humulin R Med) 0 units SC [facility] PRN Reason: Protocol Last Admin: 08/26/17 12:02 Dose: Not Given Lactulose (Enulose) 10 gm PO BID PRN PRN Reason: Constipation Last Admin: 08/26/17 09:15 Dose: 10 gm Levothyroxine Sodium (Synthroid) 300 mcg PO ACB [facility] Last Admin: 08/26/17 09:01 Dose: 300 mcg Multivitamins (Thera Tab) 1 tab PO 0800 [facility] Last Admin: 08/26/17 09:01 Dose: 1 tab Non-Formulary Medication (Nebivolol [Bystolic]) 5 mg PO DAILY [facility] Last Admin: 08/26/17 11:03 Dose: Not Given Potassium Chloride (Klor-Con 10) 10 meq PO BRK [facility] Last Admin: 08/26/17 09:01 Dose: 10 meq Psyllium Hydrophilic Mucilloid (Hydrocil Instant) 1 pkt PO BID [facility] Last Admin: 08/26/17 11:01 Dose: 1 pkt Sitagliptin Phosphate (Januvia) 25 mg PO DAILY [facility] Last Admin: 08/26/17 11:02 Dose: 25 mg Warfarin Sodium (Coumadin) 3 mg PO 1800 [facility] Last Admin: 08/25/17 17:26 Dose: 3 mg Warfarin Sodium (Coumadin) 4 mg PO 1800 [facility] Last Admin: 08/25/17 17:25 Dose: 4 mg - Labs Labs: 08/26/17 06:25 08/26/17 05:30 PT 13.3 SECONDS (9.4-12.5) H 08/26/17 06:25 INR 1.20 (0.93-1.08) H 08/26/17 06:25 APTT 25.8 Seconds (25.1-36.5) 08/23/17 13:39
--- NOTE | 2017-08-26 15:42 | PN ---
DATE: 08/26/2017 CARDIOLOGY FOLLOWUP SUBJECTIVE: The patient is comfortable without shortness of breath. PHYSICAL EXAMINATION: VITAL SIGNS: Blood pressure is 141/69, heart rate is in the 60s. NECK: Negative JVD. LUNGS: Without rales. HEART: Reveal S1, S2. EXTREMITIES: Without edema. LABORATORY DATA: Hemoglobin is 10.7. Chemistries: BUN and creatinine is 61 and 2.1. The INR is 1.2. IMPRESSION: 1. Dysuria is better. 2. Renal insufficiency. 3. History of pacemaker. 4. Hypertension. 5. Diabetes mellitus. PLAN: Given these findings, the patient is for transfer to a subacute rehab today. The patient's cardiac status is stable. Mane Key MD
[2017-08-26 17:10] VITALS: BP 124/59; RESP 18; TEMP 97.2; O2SAT 97
--- NOTE | 2017-08-27 05:14 | DS ---
SUBJECTIVE: Alea is improving. She is doing better. She was in the hospital for CHF, pyuria, obesity, venous stasis. She is currently on Coumadin, Enulose, iron, psyllium, Januvia, potassium Lasix, Lovenox, Bystolic, Synthroid, Thera-Tabs, Tylenol, Vantin, and now on Xanax. PHYSICAL EXAMINATION: VITAL SIGNS: She has a 97.7 temp, 69 pulse, 141/69 blood pressure, 20 respiratory rate, 96% O2 sat. HEENT: Head is atraumatic and normocephalic. She is alert and talking, comfortable. Wants to go to rehab. HEART: Regular rate. LUNGS: Decreased breath sounds, but clear. ABDOMEN: Soft, obese. EXTREMITIES: +2 to 4 pitting edema. LABORATORY DATA: She has a 1.2 INR, we increased her Coumadin. She has a 3.7 white count, 10.7 hemoglobin, 32.5 hematocrit with 110 platelets. She has 142 sodium, potassium is 3.8, BUN is down to 61, and creatinine 2.1 better, 23 GFR, 108 sugar, calcium is 9.2, total bilirubin is 0.4, AST is 23, ALT is 21, alk phos is 39, total protein 6.6. Urine was large leukocytes. She also had urinary tract infection. She will be on Coumadin 7 mg right now daily, Enulose, Fergon, insulin coverage, psyllium, Januvia, potassium, Lasix, Bystolic, Synthroid, multivitamin, Tylenol, Vantin, antibiotic, and Xanax. I am hoping to get her to [facility] today for subacute rehab. ASSESSMENT AND PLAN: Continue with aggressive treatment and care. I will see over there. She has congestive heart failure, pyuria, obesity, venous stasis, urinary tract infection. She was very weak needing subacute rehab. Matt Maki DO
[2017-08-27 17:17] LABS: KAPPA QUANTITATIVE 394 mg/dL (176-443); KAPPA/LAMDA QUANTITATIVE RATIO 1.99 (1.29-2.55); LAMBDA QUANTITATIVE 198 mg/dL (91-240)
[2017-08-29 12:54] LABS: BETA 1 GLOBULIN 0.3 g/dL (0.4-0.6); BETA 2 GLOBULIN 0.4 g/dL (0.2-0.5); GAMMA GLOBULIN 1.6 g/dL (0.8-1.7)
== END 2017-08-26 22:38 | DRG 292 ==
LOC: ED 12:58 → ERH 17:25 → 3RNO 19:33
PROVIDERS: ADMIT Family Medicine; ATTEND Family Medicine
DX: I13.0 Hypertensive heart and chronic kidney disease with heart failure and stage 1 through stage 4 chronic kidney disease, or unspecified chronic kidney disease (principal); I50.9 Heart failure, unspecified; N39.0 Urinary tract infection, site not specified; N17.9 Acute kidney failure, unspecified; N18.4 Chronic kidney disease, stage 4 (severe); E11.22 Type 2 diabetes mellitus with diabetic chronic kidney disease; I87.2 Venous insufficiency (chronic) (peripheral); E66.01 Morbid (severe) obesity due to excess calories; Z79.01 Long term (current) use of anticoagulants; E03.9 Hypothyroidism, unspecified; E78.00 Pure hypercholesterolemia, unspecified; R30.0 Dysuria; K59.00 Constipation, unspecified; G47.33 Obstructive sleep apnea (adult) (pediatric); D64.9 Anemia, unspecified; F41.0 Panic disorder [episodic paroxysmal anxiety]; Z87.440 Personal history of urinary (tract) infections; Z86.711 Personal history of pulmonary embolism; Z86.718 Personal history of other venous thrombosis and embolism; Z95.0 Presence of cardiac pacemaker; Z87.891 Personal history of nicotine dependence; Z98.51 Tubal ligation status; Z68.38 Body mass index [BMI] 38.0-38.9, adult

== ENCOUNTER 2018-06-16 13:19 | Emergency (ER) | payer MEDICARE ==
--- NOTE | 2018-06-16 13:58 | ED PDOC ---
Arrival/HPI - General Chief Complaint: Female Genitourinary Time Seen by Provider: 06/16/18 13:44 Historian: Patient, Caregiver - History of Present Illness Narrative History of Present Illness (Text): 06/16/18 13:53 A 68 year old female, whose past medical history includes diabetes, CHF, pacemaker, hypertension , hyperthyroidism, rheumatoid arthritis, and an IVC filter, presents to the emergency department complaining of a UTI since a few weeks ago. Patient notes experiencing associated dysuria while urinating. Patient reports she was visited by a visiting doctor who told her there may be resistance to antibiotics and talk to Dr. Maki about IV antibiotics. Patient denies any fever, chills, shortness of breath, chest pain, diarrhea, nausea, vomiting, back pain, neck pain, headache, dizziness, or any other complaints. PMD: Matt Kramer Time/Duration: Other (a few weeks) Symptom Onset: Gradual Symptom Course: Unchanged Activities at Onset: Light Context: Home Past Medical History - Provider Review Nursing Documentation Reviewed: Yes - Cardiac Hx Cardiac Disorders: Yes Hx Congestive Heart Failure: Yes Hx Pacemaker: Yes - Pulmonary Hx Respiratory Disorders: Yes Hx Sleep Apnea: Yes Other/Comment: IVC filter - Neurological Hx Neurological Disorder: No - HEENT Hx HEENT Disorder: No - Renal Hx Renal Disorder: No - Endocrine/Metabolic Hx Endocrine Disorders: Yes Hx Diabetes Mellitus Type 2: Yes Hx Hypothyroidism: Yes - Hematological/Oncological Hx Blood Disorders: No - Integumentary Hx Dermatological Disorder: No - Musculoskeletal/Rheumatological Hx Musculoskeletal Disorders: Yes Hx Rheumatoid Arthritis: Yes - Gastrointestinal Hx Gastrointestinal Disorders: Yes - Genitourinary/Gynecological Hx Genitourinary Disorders: Yes Hx Urinary Tract Infection: Yes - Psychiatric Hx Psychophysiologic Disorder: Yes Hx Anxiety: Yes Hx Panic Disorder: Yes Hx Substance Use: No - Surgical History Other/Comment: IVC Filter, PACEMAKER - Anesthesia Hx Anesthesia: Yes Family/Social History - Physician Review Nursing Documentation Reviewed: Yes Family/Social History: No Known Family HX Smoking Status: Former Smoker Hx Alcohol Use: Yes Hx Substance Use: No Allergies/Home Meds Allergies/Adverse Reactions: Allergies melon Allergy (Verified 06/16/18 13:30) ANAPHYLAXIS Home Medications: Home Meds Medication Instructions Recorded Confirmed Furosemide [Lasix] 40 mg PO DAILY 08/23/17 06/16/18 Levothyroxine Sodium [Synthroid] 0.2 mg PO DAILY 08/23/17 08/23/17 RX: Nebivolol [Bystolic] 5 mg PO DAILY 08/23/17 06/16/18 RX: Spironolactone [Aldactone] 25 mg PO DAILY 08/23/17 08/23/17 RX: hydrALAZINE [Apresoline] 2 tab PO DAILY 06/16/18 06/16/18 Review of Systems - Physician Review All systems were reviewed & negative as marked: Yes - Review of Systems Constitutional: absent: Fevers, Night Sweats Respiratory: absent: SOB Cardiovascular: absent: Chest Pain Genitourinary Female: Dysuria, Urine Output Changes (+discomfort while urinating). absent: Frequency, Hematuria, Vaginal Bleeding, Vaginal Discharge Musculoskeletal: absent: Back Pain, Neck Pain Neurological: absent: Headache, Dizziness Physical Exam Vital Signs Reviewed: Yes Vital Signs Temp Pulse Resp BP Pulse Ox 06/16/18 13:34 97.7 F 69 17 132/67 92 L Temperature: Afebrile Blood Pressure: Normal Pulse: Regular Respiratory Rate: Normal Appearance: Positive for: Well-Appearing, Non-Toxic, Comfortable Pain Distress: None Mental Status: Positive for: Alert and Oriented X 3 - Systems Exam Head: Present: Atraumatic, Normocephalic Pupils: Present: PERRL Extroacular Muscles: Present: EOMI Conjunctiva: Present: Normal Mouth: Present: Moist Mucous Membranes Neck: Present: Normal Range of Motion Respiratory/Chest: Present: Clear to Auscultation, Good Air Exchange. No: Respiratory Distress, Accessory Muscle Use Cardiovascular: Present: Regular Rate and Rhythm, Normal S1, S2. No: Murmurs Abdomen: Present: Other (+morbidly obese) Back: No: CVA Tenderness, Midline Tenderness Upper Extremity: Present: Normal Inspection. No: Cyanosis, Edema Lower Extremity: Present: Edema (+lower extremity edema, non-pitting) Neurological: Present: GCS=15, CN II-XII Intact, Speech Normal Skin: Present: Warm, Dry, Normal Color. No: Rashes Psychiatric: Present: Alert, Oriented x 3, Normal Insight, Normal Concentration Medical Decision Making ED Course and Treatment: 06/16/18 13:58 Impression: A 68 year old presenting to the emergency department Differential Diagnosis included but are not limited to: UTI Plan: -- Labs -- CBC -- Blood Culture -- Urine Culture -- Urinalysis -- Oxy sat repeated and normal. First reading not accurate. -- Reassess and disposition Prior Visits: Notes and results from previous visits were reviewed. Progress Notes: 06/16/18 14:01 Consult was called for Dr. Maki who is currently unavailable and unable to answer. 06/16/18 17:33 Dr. Maki is not available to discuss case. His bilingual secretary cannot find any recent urine cultures on record. Patient's visiting physicians Dr. Brunner sent her in for UTI for possible need of IV antiboitics. Patient given one dose of Rocephin IV. She will be discharged on Bactrim BID x 7 days. Her urine culture was sent and we will follow up results and call if there is a resistance. Patient was advised to return to the ED if symptoms worsen or any other concern. - Scribe Statement The provider has reviewed the documentation as recorded by the Astridibchristine Patterson All medical record entries made by the Scribe were at my direction and per sonally dictated by me. I have reviewed the chart and agree that the record accurately reflects my personal performance of the history, physical exam, medical decision making, and the department course for this patient. I have also personally directed, reviewed, and agree with the discharge instructions and disposition. Disposition/Present on Arrival - Present on Arrival Any Indicators Present on Arrival: Yes History of DVT/PE: No History of Uncontrolled Diabetes: Yes Urinary Catheter: No History of Decub. Ulcer: No History Surgical Site Infection Following: None - Disposition Have Diagnosis and Disposition been Completed?: Yes Diagnosis: UTI (urinary tract infection) Disposition: HOME/ ROUTINE Disposition Time: 18:39 Patient Plan: Discharge Condition: GOOD Discharge Instructions (ExitCare): Urinary Tract Infections in Adults Additional Instructions: STEVE CHANEY, thank you for letting us take care of you today. Your provider was Luis Larios DO and you were treated for UTI. The emergency medical care you received today was directed at your acute symptoms. If you were prescribed any medication, please fill it and take as directed. It may take several days for your symptoms to resolve. Return to the Emergency Department if your symptoms worsen, do not improve, or if you have any other problems. You have been treated with IV Rocephin x 1 dose. Your urine will be sent for culture. Please take the bactrim as dosed on the prescription. We will follow up the urine culture and call you if there is resistence. Please return if you develop fever, or any other concern. Please contact your doctor or call one of the physicians/clinics you have been referred to that are listed on the Patient Visit Information form that is included in your discharge packet. Bring any paperwork you were given at discharge with you along with any medications you are taking to your follow up visit. Our treatment cannot replace ongoing medical care by a primary care provider outside of the emergency department. Thank you for allowing the [facility] team to be part of your care today. If you had an X-Ray or CT scan: A Radiologist will review the ED reading if any change in treatment is needed we will contact you. If you had a blood, urine, or wound culture: It will take several days for the results, if any change in treatment is needed we will contact you. If you had an STI test: It will take 48 hours for the results. Please call after 1 week if you have not heard back. Prescriptions: Sulfamethoxazole/Trimethoprim [Bactrim DS 800 mg-160 mg] 1 tab PO Q12 #14 tab Referrals: Matt Maki DO [Primary Care Provider] - Follow up with primary Forms: [employer] (Sinhala)
[2018-06-16 14:36] LABS: URINE BILIRUBIN NEGATIVE (NEGATIVE); URINE BLOOD TRACE-INTACT (NEGATIVE); URINE GLUCOSE (UA) NEGATIVE (NEGATIVE); URINE LEUKOCYTE ESTERASE LARGE Leu/uL (NEGATIVE); URINE PROTEIN 30 mg/dL (<30 mg/dL); URINE UROBILINOGEN 0.2 E.U./dL (<1 E.U./dL)
[2018-06-16 15:00] LABS: BASO # 0.03 K/mm3 (0.0-2.0); BASO % 0.5 % (0.0-3.0); EOS # 0.1 (0.0-0.7); EOS % 2.3 % (1.5-5.0); GRAN # 4.26 (1.4-6.5); GRAN % 75.3 % (50.0-68.0); LYMPH % 17.1 % (22.0-35.0); MEAN CELL VOLUME 88.3 fl (80.0-105.0); MEAN CORPUSCULAR HEMOGLOBIN 28.3 pg (25.0-35.0); MEAN PLATELET VOLUME 9.4 fl (7.0-11.0); MONO # 0.3 (0.1-0.6); MONO % 4.8 % (1.0-6.0); RBC 4.95 10^6/uL (3.5-6.1); RED CELL DISTRIBUTION WIDTH 16.6 % (11.5-14.5); WHITE BLOOD COUNT 5.7 10^3/ul (4.5-11.0)
[2018-06-16 15:02] LABS: URINE APPEARANCE CLEAR (CLEAR); URINE COLOR YELLOW (YELLOW)
[2018-06-16 15:07] LABS: URINE AMORPHOUS SEDIMENT FEW; URINE BACTERIA MANY (NEG); URINE WBC TNTC /hpf (0-6)
[2018-06-16 16:36] LABS: CALCIUM 8.9 mg/dL (8.4-10.5)
[2018-06-16] MEDS ORDERED: cefTRIAXone 1 gm 1 GM/100 ML BAG IVPB STA (17:41)
[2018-06-16 18:08] VITALS: O2SAT 96
[2018-06-16 20:13] VITALS: BP 119/68; PULSE 72; RESP 17; TEMP 98.2
== END 2018-06-16 20:13 | disposition home or self-care (01) ==
LOC: ED 13:19
DX: N39.0 Urinary tract infection, site not specified (principal); E11.9 Type 2 diabetes mellitus without complications; I50.9 Heart failure, unspecified; I10 Essential (primary) hypertension; E03.9 Hypothyroidism, unspecified; M06.9 Rheumatoid arthritis, unspecified; Z87.891 Personal history of nicotine dependence
CPT/HCPCS: 80048; 81001; 83735; 84443; 85025; 87040; 87086; 87181; 96365; 99284; J0696